=== PATIENT | male | born 1975 | race American Indian/Alaskan Native ===

== ENCOUNTER 2016-06-26 12:12 | Emergency (ER) | payer MEDICAID, OTHER ==
[2016-06-26 12:13] VITALS: BMI 28.5
[2016-06-26 12:34] VITALS: BP 154/79; PULSE 100; RESP 18; TEMP 97.5; O2SAT 98
--- NOTE | 2016-06-26 12:51 | ED PDOC ---
Arrival/HPI - General Chief Complaint: Medical Clearance Time Seen by Provider: 06/26/16 12:24 Historian: Patient - History of Present Illness Time/Duration: 1 week Associated Symptoms (Text): 06/26/16 12:48 Patient was incarcerated until one week ago. He states that while he was in correction he was diagnosed with diabetes and also with a thyroid problem. He was started on metformin 500 mg daily. He does not know what his thyroid medication was. He reports that he does not have a clinic appointment until July 21 and he came to the emergency department to get his prescriptions. I instructed the patient that I would fill a week's worth of metformin for him, but he would need to get into the clinic to get his additional medications. I left a voicemail with the nurse manager e learning to try to facilitate this appointment. Past Medical History - Infectious Disease Hx of Infectious Diseases: None - Tetanus Immunization Tetanus Immunization: Unknown - Endocrine/Metabolic Hx Diabetes Mellitus Type 2: Yes Hx Hyperthyroidism: Yes Other/Comment: history of high blood sugar - Psychiatric Hx Substance Use: No - Suicidal Assessment Feels Threatened In Home Enviroment: No Family/Social History - Physician Review Nursing Documentation Reviewed: Yes Family/Social History: Unknown Family HX Smoking Status: Former Smoker (Quit smoking 2 years ago) Hx Alcohol Use: Yes Frequency of alcohol use: Socially Hx Substance Use: No Hx Substance Use Treatment: No Allergies/Home Meds Allergies/Adverse Reactions: Allergies No Known Allergies Allergy (Verified 03/18/14 09:28) Review of Systems - Physician Review All systems were reviewed & negative as marked: Yes Physical Exam Vital Signs Temp Pulse Resp BP Pulse Ox 06/26/16 12:27 97.5 F L 100 H 18 154/79 H 98 Temperature: Afebrile Blood Pressure: Hypertensive Pulse: Regular Respiratory Rate: Normal Appearance: Positive for: Well-Appearing, Non-Toxic, Comfortable Pain Distress: None Mental Status: Positive for: Alert and Oriented X 3 Finger Stick Blood Glucose: 212 - Systems Exam Head: Present: Atraumatic, Normocephalic Mouth: Present: Moist Mucous Membranes Pharnyx: No: ERYTHEMA, EXUDATE, TONSILS ENLARGED Respiratory/Chest: Present: Clear to Auscultation, Good Air Exchange. No: Respiratory Distress, Accessory Muscle Use Cardiovascular: Present: Regular Rate and Rhythm, Normal S1, S2. No: Murmurs Abdomen: Present: Normal Bowel Sounds. No: Tenderness, Distention, Peritoneal Signs Upper Extremity: Present: Normal Inspection. No: Cyanosis, Edema Lower Extremity: Present: Normal Inspection. No: Edema Neurological: Present: GCS=15, CN II-XII Intact, Speech Normal Skin: Present: Warm, Dry, Normal Color. No: Rashes Psychiatric: Present: Alert, Oriented x 3, Normal Insight, Normal Concentration Disposition/Present on Arrival - Present on Arrival Any Indicators Present on Arrival: No History of DVT/PE: No History of Uncontrolled Diabetes: No Urinary Catheter: No History of Decub. Ulcer: No History Surgical Site Infection Following: None - Disposition Have Diagnosis and Disposition been Completed?: Yes Diagnosis: Diabetes, Hypertension, Thyroid disease Disposition: HOME/ ROUTINE Disposition Time: 12:50 Patient Plan: Discharge Condition: GOOD Discharge Instructions (ExitCare): Diabetes Mellitus Type 2 in Adults (ED), Hypertension (ED) Additional Instructions: Call the clinic Tuesday for new appointment. Prescriptions: metFORMIN [glucOPHAGE] 500 mg PO DAILY #10 tab Referrals: [facility] [place] [facility] [place] - Follow up with primary
== END 2016-06-26 12:58 | disposition home or self-care (01) ==
LOC: ED 12:12
DX: E11.9 Type 2 diabetes mellitus without complications (principal); I10 Essential (primary) hypertension; E07.9 Disorder of thyroid, unspecified; Z79.84 Long term (current) use of oral hypoglycemic drugs; Z87.891 Personal history of nicotine dependence